=== PATIENT | male | born 1980 | race Caucasian/White ===

== ENCOUNTER 2020-05-25 20:42 | Emergency (ER) | payer OTHER ==
[~2020-05-25] VITALS: Ht 167.6 cm; Wt 104.3 kg
[2020-05-25 22:09] VITALS: Ht 167.6 cm; Wt 104.3 kg
[2020-05-26 01:12] LABS: BASOPHIL % 0.6 % (0.2-1.5); PLATELET COUNT 362 x10^3mcL (152-348)
[2020-05-26 01:29] LABS: CALCIUM 8.8 mg/dL (8.5-10.1); CARBON DIOXIDE 27.1 mmol/L (21-32); CHLORIDE SERUM 102 mmol/L (98-107); CREATININE SERUM 1.1 mg/dL (0.7-1.3); GFR1 > 60 mL/min; GLUCOSE SERUM 104 mg/dL (74-106); POTASSIUM SERUM 3.5 mmol/L (3.5-5.1); SODIUM SERUM 139 mmol/L (136-145)
[2020-05-26 01:31] LABS: rbc morphology (normal/abnorm) NORMAL (NORMAL)
[2020-05-26 01:33] LABS: ALBUMIN 3.8 g/dL (3.4-5.0); ALKALINE PHOSPHATASE 65 U/L (46-116); ALT/SGPT 34 U/L (16-63); AST/SGOT 14 U/L (15-37); BILIRUBIN TOTAL 0.44 mg/dL (0.20-1.00); TOTAL PROTEIN, SERUM 8.2 g/dL (6.4-8.2)
[2020-05-26 04:52] VITALS: BP 126/74
== END 2020-05-26 04:52 | disposition home or self-care (01) ==
LOC: ED 20:42
PROVIDERS: Emergency Medicine
DX: R07.89 Other chest pain (principal)